=== PATIENT | female | born 1970 | race American Indian/Alaskan Native ===

== ENCOUNTER 2017-03-29 10:23 | Emergency (ER) | payer OTHER ==
[2017-03-29 10:44] VITALS: TEMP 99.3
--- NOTE | 2017-03-29 10:57 | ED PDOC ---
Arrival/HPI - General Chief Complaint: Female Genitourinary Time Seen by Provider: 03/29/17 10:55 Historian: Patient - History of Present Illness Narrative History of Present Illness (Text): 03/29/17 10:56 47 year old female, pmh including hypertension, nkda, complaining of urinary frequency and burning urinary sensation x 2 days. Pt. stated that she is very anxious and stress out from the urinary symptoms, no flank pain, no headache or night sweat, no palpitation, no dizziness, no rash, no other medical or psychological complaints. Past Medical History - Provider Review Nursing Documentation Reviewed: Yes - Cardiac Hx Hypertension: Yes - Pulmonary Hx Asthma: Yes - Neurological Hx Neurological Disorder: No - HEENT Hx HEENT Disorder: No - Renal Hx Renal Disorder: No - Endocrine/Metabolic Hx Endocrine Disorders: No - Hematological/Oncological Hx Blood Disorders: No - Integumentary Hx Dermatological Disorder: No - Musculoskeletal/Rheumatological Hx Back Pain: Yes - Gastrointestinal Hx Hemorrhoids: Yes - Genitourinary/Gynecological Hx Urinary Tract Infection: Yes - Psychiatric Hx Anxiety: Yes Hx Substance Use: Yes (HEROIN, RX OPIATES) - Surgical History Hx Section: Yes Hx Cholecystectomy: Yes Family/Social History - Physician Review Nursing Documentation Reviewed: Yes Family/Social History: Unknown Family HX Smoking Status: Heavy Smoker > 10 Cigarettes Daily Hx Alcohol Use: No Hx Substance Use: Yes (HEROIN, RX OPIATES) Allergies/Home Meds Allergies/Adverse Reactions: Allergies No Known Allergies Allergy (Verified 03/29/17 10:39) Home Medications: Home Meds Medication Instructions Recorded Confirmed ALPRAZolam [Xanax] 1 mg PO TID 03/29/17 03/29/17 Methadone HCl [Methadose] 80 mg PO DAILY 03/29/17 03/29/17 cloNIDine [Catapres] 1 tab PO TID 03/29/17 03/29/17 Review of Systems - Review of Systems Constitutional: absent: Fatigue, Fevers Eyes: absent: Vision Changes ENT: absent: Hearing Changes Respiratory: absent: Cough, Sputum Cardiovascular: absent: Chest Pain Gastrointestinal: absent: Abdominal Pain, Nausea, Vomiting Genitourinary Female: Dysuria, Frequency. absent: Hematuria, Urine Output Changes, Vaginal Bleeding, Vaginal Discharge Psychiatric: Anxiety. absent: Depression, Suicidal Ideation Physical Exam Vital Signs Reviewed: Yes Vital Signs Temp Pulse Resp BP Pulse Ox 03/29/17 12:34 94 H 17 167/95 H 95 03/29/17 10:43 99.3 F 105 H 16 183/121 H 97 Temperature: Afebrile Blood Pressure: Hypertensive Pulse: Tachycardic Respiratory Rate: Normal Appearance: Positive for: Well-Appearing, Non-Toxic, Uncomfortable Pain Distress: Mild Mental Status: Positive for: Alert and Oriented X 3 - Systems Exam Head: Present: Atraumatic, Normocephalic Pupils: Present: PERRL Extroacular Muscles: Present: EOMI Conjunctiva: Present: Normal Mouth: Present: Moist Mucous Membranes Neck: Present: Normal Range of Motion Respiratory/Chest: Present: Clear to Auscultation, Good Air Exchange. No: Respiratory Distress, Accessory Muscle Use Cardiovascular: Present: Regular Rate and Rhythm, Normal S1, S2. No: Murmurs Abdomen: Present: Tenderness (mild suprapubic tenderness), Normal Bowel Sounds. No: Distention, Peritoneal Signs, Rebound, Guarding Back: Present: Normal Inspection Upper Extremity: Present: Normal Inspection. No: Cyanosis, Edema Lower Extremity: Present: Normal Inspection. No: Edema Neurological: Present: GCS=15, CN II-XII Intact, Speech Normal Skin: Present: Warm, Dry, Normal Color. No: Rashes Psychiatric: Present: Alert, Oriented x 3, Normal Insight, Normal Concentration Medical Decision Making ED Course and Treatment: 03/29/17 10:56 -labs/ua -IV ativan/toradol/pyridium -observe and reassess 03/29/17 12:48 -Anxious and pain resolved with IV medication, BP decreased, no cardiopulmonary or neurological complaints -Labs are non-significant -Urinalysis show +UTI, macrobid ordered. -Discharge home with macrobid, pyridium, stay hydrated, follow up with your own pmd and urologist within 2 days, return to the ER for any new or worsening signs or symptoms. - Lab Interpretations Lab Results: 03/29/17 12:00 03/29/17 12:20 Lab Results 03/29/17 12:20: Sodium 143, Potassium 4.1, Chloride 100, Carbon Dioxide 34 H, Anion Gap 13, BUN 5 L, Creatinine 0.9, Est GFR ( Amer) > 60, Est GFR (Non -Af Amer) > 60, Random Glucose 100, Calcium 9.5, Total Bilirubin 0.7, AST 85 H, ALT 65 H, Alkaline Phosphatase 98, Total Protein 8.2, Albumin 4.2, Globulin 4.0 , Albumin/Globulin Ratio 1.1 03/29/17 12:00: WBC 7.6, RBC 4.70, Hgb 14.3, Hct 44.3, MCV 94.3, MCH 30.4, MCHC 32.3, RDW 13.5, Plt Count 181, MPV 11.9 H, Gran % 45.3 L, Lymph % (Auto) 43.5 H , [place] % (Auto) 6.6 H, Eos % (Auto) 4.2, Baso % (Auto) 0.4, Gran # 3.43, Lymph # 3.3, [place] # 0.5, Eos # 0.3, Baso # 0.03 03/29/17 11:00: Urine HCG, Qual Negative 03/29/17 11:00: Urine Color Light yellow, Urine Appearance Cloudy, Urine pH 7.0 , Ur Specific [place] 1.010, Urine Protein Negative, Urine Glucose (UA) Negative , Urine Ketones Negative, Urine Blood Trace-lysed H, Urine Nitrate Negative, Urine Bilirubin Negative, Urine Urobilinogen 0.2, Ur Leukocyte Esterase Large H , Urine RBC 0 - 2, Urine WBC 10 - 15, Ur Epithelial Cells 3 - 4, Urine Bacteria Mod I have reviewed the lab results: Yes Interpretation: Abnormal lab values (+UTI) - Medication Orders Current Medication Orders: Discontinued Medications Ketorolac Tromethamine (Toradol) 30 mg IVP STAT STA Stop: 03/29/17 11:13 Last Admin: 03/29/17 11:27 Dose: 30 mg Lorazepam (Ativan) 1 mg IVP ONCE ONE PRN Reason: Protocol Stop: 03/29/17 11:13 Last Admin: 03/29/17 11:27 Dose: 1 mg Phenazopyridine HCl (Pyridium) 200 mg PO STAT STA Stop: 03/29/17 11:16 Last Admin: 03/29/17 11:28 Dose: 200 mg - 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 Disposition/Present on Arrival - Present on Arrival Any Indicators Present on Arrival: No History of DVT/PE: No History of Uncontrolled Diabetes: No Urinary Catheter: No History of Decub. Ulcer: No History Surgical Site Infection Following: None - Disposition Have Diagnosis and Disposition been Completed?: Yes Diagnosis: UTI (urinary tract infection), Anxiety Disposition: HOME/ ROUTINE Disposition Time: 12:49 Patient Plan: Discharge Condition: IMPROVED Additional Instructions: Discharge home with macrobid, pyridium, stay hydrated, follow up with your own pmd and urologist within 2 days, return to the ER for any new or worsening signs or symptoms. Prescriptions: Nitrofurantoin Macrocrystals [Macrobid] 100 mg PO BID #14 cap Phenazopyridine [Phenazopyridine HCl] 200 mg PO TID #5 tab Referrals: Travon Arreola MD [Primary Care Provider] - Follow up with primary Forms: [facility] ([place]ian), WORK NOTE
[2017-03-29 11:31] LABS: URINE BILIRUBIN NEGATIVE (NEGATIVE); URINE BLOOD TRACE-LYSED (NEGATIVE); URINE GLUCOSE (UA) NEGATIVE (NEGATIVE); URINE KETONE NEGATIVE (NEGATIVE); URINE LEUKOCYTE ESTERASE LARGE Leu/uL (NEGATIVE); URINE PROTEIN NEGATIVE mg/dL (<30 mg/dL); URINE UROBILINOGEN 0.2 E.U./dL (<1 E.U./dL)
[2017-03-29 11:33] LABS: URINE APPEARANCE CLOUDY (CLEAR); URINE COLOR LIGHT YELLOW (YELLOW)
[2017-03-29 11:44] LABS: URINE BACTERIA MOD (NEG); URINE RBC 0 - 2 /hpf (0-2)
[2017-03-29 12:06] LABS: ADD MANUAL DIFF? NO
[2017-03-29 12:10] LABS: BASO # 0.03 K/mm3 (0.0-2.0); BASO % 0.4 % (0.0-3.0); EOS # 0.3 (0.0-0.7); EOS % 4.2 % (1.5-5.0); GRAN # 3.43 (1.4-6.5); GRAN % 45.3 % (50.0-68.0); HEMATOCRIT 44.3 % (36.0-48.0); LYMPH # 3.3 (1.2-3.4); LYMPH % 43.5 % (22.0-35.0); MEAN CELL VOLUME 94.3 fL (80.0-105.0); MEAN CORPUSCULAR HEMOGLOBIN 30.4 pg (25.0-35.0); MEAN CORPUSCULAR HGB CONC 32.3 g/dl (31.0-37.0); MEAN PLATELET VOLUME 11.9 fl (7.0-11.0); MONO # 0.5 (0.1-0.6); MONO % 6.6 % (1.0-6.0); PLATELET COUNT 181 10^3/uL (120.0-450.0); RED CELL DISTRIBUTION WIDTH 13.5 % (11.5-14.5); WHITE BLOOD COUNT 7.6 10^3/ul (4.5-11.0)
[2017-03-29 12:43] LABS: ALB/GLOB RATIO 1.1 (1.1-1.8); ALKALINE PHOSPHATASE 98 U/L (38-133); ALT/SGPT 65 U/L (7-56); AST/SGOT 85 U/L (15-39); BILIRUBIN,TOTAL 0.7 mg/dL (0.2-1.3); BLOOD UREA NITROGEN 5 mg/dL (7-21); CALCIUM 9.5 mg/dL (8.4-10.5); CARBON DIOXIDE 34 mmol/L (21-33); CHLORIDE 100 mmol/L (98-107); GFR AFRICAN-AMERICAN > 60; GLUCOSE,RANDOM 100 mg/dL (70-110); POTASSIUM 4.1 mmol/L (3.6-5.0); SODIUM 143 mmol/L (132-148); TOTAL PROTEIN 8.2 g/dL (5.8-8.3)
[2017-03-29 13:29] VITALS: BP 165/94; PULSE 90; RESP 16; O2SAT 98
== END 2017-03-29 13:30 | disposition home or self-care (01) ==
LOC: ED 10:23
DX: N39.0 Urinary tract infection, site not specified (principal); F41.9 Anxiety disorder, unspecified
CPT/HCPCS: 80053; 81001; 84703; 85025; 87086; 96374; 96375; 99285; J1885; J2060